=== PATIENT | female | born 1970 | race Caucasian/White ===

== ENCOUNTER → 2019-09-05 10:59 | Outpatient (CLI) | payer OTHER, SELFPAY ==
[2019-09-05 11:14] LABS: RBC Urine None Seen (0-5/HPF)
[2019-09-05 11:59] LABS: Add Manual Diff / Slide Review NO; Basophils Absolute Auto 100 /uL (0-100); Eosinophils Absolute Auto 100 /uL (0-450); Eosinophils Percent Auto 0.8 % (2-4); Hematocrit 38.4 % (36-46); Hemoglobin 12.8 g/dL (12.0-16.0); Lymphocytes Absolute Auto 3200 /uL (1100-4500); Lymphocytes Percent Auto 34.9 % (25-40); Mean Corpuscular HGB Conc 33.2 % (30-36); Mean Corpuscular Hemoglobin 31.3 PG (26-34); Mean Corpuscular Volume 94.1 fL (80-100); Monocytes Absolute Auto 500 /uL (0-900); Monocytes Percent Auto 5.6 % (3-14); Neutrophils Absolute Auto 5200 /uL (1500-7000); Neutrophils Percent Auto 57.7 % (50-75); Platelet Count 417 X10^3/uL (150-400); Red Blood Cell Count 4.08 X10^6/uL (4.0-5.2); Red Cell Distribution Width 14.3 % (11.6-14.8); White Blood Cell Count 9.1 X10^3/uL (4.5-11.0)
[2019-09-05 12:04] LABS: Appearance Urine UA CLEAR; Bilirubin Urine UA NEGATIVE (NEGATIVE); Color Urine UA YELLOW; Glucose Urine UA NEGATIVE (Negative); Ketones Urine UA 1+ (NEGATIVE); Leukocyte Esterase Urine UA TRACE (NEGATIVE); Nitrite Urine UA NEGATIVE (Negative); Occult Blood Urine UA NEGATIVE (Negative); Protein Urine UA NEGATIVE (Negative); Urobilinogen Urine UA 0.2 E.U./dL (0.2)
[2019-09-05 12:12] LABS: pH Urine UA 7.5 (4.5-8.0)
[2019-09-05 12:16] LABS: Blood Urea Nitrogen 15 mg/dL (7-17); Calcium 9.6 mg/dL (8.4-10.2); Carbon Dioxide 26 mmol/L (22-32); Chloride 104 mmol/L (98-107); Estimated Glomerular Filt Rate > 60.0 mL/min (>60); Glucose 92 mg/dL (70-100); HEMOLYSIS < 15 (0-50); Potassium 4.2 mmol/L (3.4-5.1); Sodium 141 mmol/L (137-145)
[2019-09-05 12:17] LABS: Hemoglobin A1C% w Est Avg Glu 5.6 % (4.0-6.0)
[2019-09-05 12:21] LABS: Squamous Epithelial Cell Urine 1-5 /HPF (0-5/HPF); WBC Urine 0-1/HPF (0-5/HPF)
[2019-09-05 12:22] LABS: Bacteria Urine Few (2-10); Culture Indicated Urine Specimen Cultured
== END ==
PROVIDERS: Family Provider Specialist; PCP Specialist; Visit Provider Orthopaedic Surgery
DX: Z01.818 Encounter for other preprocedural examination (principal); Z01.812 Encounter for preprocedural laboratory examination; Z13.1 Encounter for screening for diabetes mellitus; N39.9 Disorder of urinary system, unspecified; R73.9 Hyperglycemia, unspecified
CPT/HCPCS: 36415; 80048; 81001; 83036; 85025; 87086; 93005

== ENCOUNTER 2019-10-10 06:00 | Inpatient (IN) | payer OTHER, SELFPAY ==
[2019-10-04 09:55] VITALS: BMI 51.9
[2019-10-10] VITALS (14 sets, daily range): BP systolic 108–151; BP diastolic 58–98; PULSE 72–100; RESP 14–27; TEMP 36.1–36.9; O2SAT 96–98; BMI 51.9
--- NOTE | 2019-10-10 | DI.RAD.S_ITS ---
PROCEDURE: XR PELVIS 1-2V INDICATIONS: INTER OP HIP TECHNIQUE: Intra-operative view of the pelvis and hip acquired. COMPARISON: [facility] [place], [place], XR PELVIS WITH LATERAL HIP RIGHT, 09/05/2019, 9:48. FINDINGS: Bones: Limited study demonstrates partial placement of right hip arthroplasty. The visualized components appear in expected positions. An intramedullary shannon is again noted in the visualized left femur. No definite acute fractures. Soft tissues: Overlying surgical retractors are present, along with other intraoperative changes. IMPRESSION: 1. Intraoperative study obtained for surgical guidance demonstrates partial placement of right hip arthroplasty components. Dictated by: Kailash Samson M.D. on 10/10/2019 at 10:04 Approved by: Kailash Samson M.D. on 10/10/2019 at 10:06
--- NOTE | 2019-10-10 06:00 | DI.RAD.S_ITS ---
PROCEDURE: XR HIP W PEL IF DONE RT 2V INDICATIONS: post op right DIVINE TECHNIQUE: AP pelvis and lateral view of the right hip acquired. COMPARISON: [facility], [place], HIP 2V RIGHT, 09/09/2011, 9:50. FINDINGS: Bones: Patient is status post total right hip arthroplasty, with hardware components in expected positions. The hip joint appears congruent. The visualized bony structures appear intact. An intramedullary nail is partially visualized within the proximal left femur. Soft tissues: Overlying postoperative changes are noted. No suspicious soft tissue densities. IMPRESSION: Status post right total hip arthroplasty. Dictated by: Tanisha Robertson M.D. on 10/10/2019 at 10:10 Approved by: Tanisha Robertson M.D. on 10/10/2019 at 10:10
[2019-10-10] MEDS: LACTATED RINGERS 1,000 ML 42 ML IV ×2 (07:02→10:12)
[2019-10-10] MEDS: MELOXICAM 7.5 MG TABLET 15 MG PO (07:04)
[2019-10-10] MEDS: PREGABALIN 75 MG CAPSULE PO (07:05)
[2019-10-10] MEDS: VANCOMYCIN 1,000 MG/200 ML PIGGYBACK 200 MG IV (07:05)
[2019-10-10] MEDS: ACETAMINOPHEN 325 MG TABLET 975 MG PO (07:27)
--- NOTE | 2019-10-10 07:36 | SUR.PREOP ---
Patient took 500 mg of tylenol this morning prior to arrival. Per Dr Stewart, anesthesia, okay to give 325 mg Tylenol. Family at bedside and supportive.
--- NOTE | 2019-10-10 07:47 | PM.PREOP ---
Pre-operative Note Interval Note History & Physical reviewed/Exam performed by Physician: Yes Changes to H&P: No H&P completed within 30 days and has changed as indicated here:: taking 30mg prednisone daily to optimize lungs
[2019-10-10] MEDS: CEFAZOLIN 2 GM/100 ML FROZ.PIGGY IV (07:48)
--- NOTE | 2019-10-10 07:48 | PM.OP.1 ---
Operative Date/Time/Diagnoses Date of procedure: 10/10/19 Time of procedure: 07:48 Pre-op diagnosis: right hip OA Post-op diagnosis: same Procedure & Clinicians Procedure: right hip total hip arthroplasty Same procedure as scheduled: Yes Indications: The patient has had progressively worsening right hip pain with radiographic changes consistent with arthritis. Non-operative management has failed and the patient has requested total hip replacement. The risks, benefits and alternatives to surgery were discussed with the patient prior to proceeding. Risks discussed included, but were not limited to, failure to relieve pain, leg length discrepancy, dislocation, stiffness, infection, nerve damage, deep venous thrombosis, pulmonary embolism, stroke, coma, heart attack, permanent paralysis and , as well as the potential need for eventual revision of the prosthetic. Patient was noted to have morbid obesity but was otherwise optimized for surgical intervention. She had severe right hip osteoarthritis to the extent that she was barely able to walk. Surgeon: Mehnaz Zamudio Radiotelegraphist: Ranulfo Wheat Anesthesia Type: Spinal Operative Notes Findings: Severe right hip osteoarthritis, adequate quality bone, adequate stability Closure Type: primary Specimen(s): none sent Prosthetic devices, grafts, tissues, transplants, or devices: Anthology size 3 standard offset stem, 32 mm +0 head, 48 by 32 mm R3 acetabulum, one 15 mm screw Applied: drain(s) Estimated Blood Loss (mL): 250 Procedure in detail: The patient was seen in the pre-operative area, where the patient identified the right hip as the operative site and this was marked with my initials. The patient received pre-operative antibiotics and was taken to the operating room and placed on the operative table in the left lateral decubitus position after satisfactory anesthesia. A apparel fashion designer out was performed. The right leg was prepared from the ankle to the iliac crest with ChloroPrep in the usual fashion and draped through sterile drapes. The hip was approached through an approximately 20 cm incision centered over the greater trochanter and curving gently posteriorly as it went proximally. This was carried sharply to the fascia katie, which was divided and retracted with a self retaining retractor. The trochanteric bursa was excised with care being taken to avoid the sciatic nerve, which was identified and protected throughout the case. The short external rotators were incised and the capsulomuscular flap was raised and tagged for later repair. The hip was dislocated, and a femoral neck osteotomy performed approximately 15 mm above the lesser trochanter. Retractors were placed around the femur. The canal was opened with a box cutting osteotome, followed by a T handled reamer and a lateralizing reamer. The chili pepper broach was then used, followed by sequential broaching until there was good stability of the broach in the femur. Retractors were placed to expose the acetabulum. The labrum and central soft tissues were removed. Reaming was performed initially going up in 2 mm increments, then 1 mm increments until good bite was obtained with an odd sized reamer. The cup 1 mm larger than the last reamer was then inserted using the appropriate anteversion guides. A trial neutral liner was placed. The broach was placed in the canal. A trial head and neck were then placed and the hip relocated and checked for leg length and stability. An intraoperative film confirmed the component position and no evidence of fracture. The patient was stable in the position of sleep, of squatting, and could be put through a range of motion with 45 degrees internal rotation without dislocation. At 90 degrees flexion, internal rotation to 70 was possible before dislocation. This was felt to be satisfactory and the appropriate components were opened, and the trials were removed. The acetabular stability was tested and a single 6.5 mm screw was placed to provide additional stability. The acetabular liner was impacted into position. The final stem was impacted into the prepared femoral canal. A brief Betadine soak was performed while trialing with head options. The hip was meticulously irrigated with normal saline. Finally the femoral head was impacted onto the stem. The acetabulum was cleared of all material and the hip relocated one final time. The capsulomuscular flap was then repaired to the greater trochanter though an awl hole using the tag sutures. The short external rotators were repaired with a nonabsorbable suture. A deep drain was placed and brought out anteriorly. The fascia katie was closed with Vicryl. The subcutaneous layer was closed with barbed sutures and SteriStrips. An Aquacel Ag dressing was applied and the patient was taken to recovery having tolerated the procedure well. Complications: none Post-operative Condition: stable Disposition: Acute Care Plan for aftercare: The patient will be maintained on a standard total hip replacement protocol with weight bearing as tolerated and posterior hip precautions. The patient will receive Aspirin and sequential compression devices for DVT prophylaxis. The patient will be discharged home when safe for the home environment.
[2019-10-10] MEDS: TRANEXAMIC ACID 1,000 MG VIAL 2000 MG INJ ×2 (08:37→10:03)
[2019-10-10] MEDS: SODIUM CHLORIDE IRRIG SOLUTION 250 ML, EPINEPHrine 1 MG IRR (08:40)
[2019-10-10] MEDS: BUPIVACAINE LIPOSOME 266 MG/20 ML VIAL INJ (08:42)
[2019-10-10] MEDS: BUPIVACAINE 0.25% W/ EPI (PF) 10 ML VIAL 60 ML INJ (08:45)
--- NOTE | 2019-10-10 09:02 | SUR.OPER ---
Lateral on padded OR bed. Gel axillary roll. Arms secured on gel padded armboard with pillow supporting top arm. Padded hip positioner braces x4 - anterior and posterior chest and pelvis. Additional gel pad used anterior pelvis. Gel pad under bottom leg from knee to foot and secured with tape over sheet.
[2019-10-10] MEDS: OXYCODONE IR 5 MG TABLET PO ×2 (11:04→11:35)
[2019-10-10] MEDS: hydrOXYzine 50 MG/ML INJ 25 MG IM (11:06)
--- NOTE | 2019-10-10 11:51 | SUR.PHASEI ---
Patient taken to room 212. Brought up in bed in stable condition. All belongings, including CPAP sent with patient. Receiving KRISTY Pierson at bedside to receive patient.
[2019-10-10] MEDS: LACTATED RINGERS 1,000 ML 125 ML IV ×2 (12:20→19:52)
--- NOTE | 2019-10-10 12:28 | PC.NURSE ---
Addendum entered by Kenna Rios R.N. 10/10/19 13:36: Dr. Zamudio called for update around 1320, wants pt OOB today with PT. Clarified scheduled [place] dose, hold for now and placed hold on eMAR. At 1335, pt OOB to BR to void, and OOB ambulating in halls with PT. Several family members at bedside. Original Note: Day Shift- Report rec'd from KRISTY Spear in PACU at 1130. Pt arrived to unit room 212 at 1145 via bed. Oriented to bed functions, call light, po intake, pain management, ankle pump exercises, incentive spirometer. Pt states 1/10 burning, sore to right hip area. Bilateral feet, ankles, and just above ankles to lower legs numb. Able to sense touch, not cold or wet from alcohol pad. Pt A&OX4, able to answer questions appropriately, RT paged to set up pt's own CPAP machine. Right posterior hip DEV dressing CDI with hemovac in place on compression suction. Insertion site covered with CDI tegaderm dressing. Call light within reach, bed alarm on.
[2019-10-10] MEDS: IBUPROFEN 400 MG TABLET PO ×3 (12:52→22:06)
[2019-10-10] MEDS: HYDROCODONE/ACET 5/325 TABLET 2 TAB PO (12:53)
--- NOTE | 2019-10-10 14:17 | PT.IIE ---
Current Diagnoses Unilateral primary osteoarthritis, right hip (10/10/19) Surgery Performed Operation Date: 10/10/19 07:45 Actual Procedures p Total Hip Arthroplasty(Right) - Mehnaz Zamudio MD Surgical History (Last Updated 10/04/19 @ 10:23 by Grace Medrano RN) History of (Acute) History of surgery (Acute ~1990) History of surgery (Acute) Hx of sinus surgery (Acute ~1979) Medical History (Last Updated 10/05/19 @ 10:57 by Grace Medrano RN) Asthma (Chronic) Chronic pain (Acute) Chronic pain due to injury (Chronic) Chronic seasonal allergic rhinitis (Chronic) Collapsed arches (Acute) Easy bruisability (Acute) Eczema (Acute) Fatigue (Chronic) Fatty liver (Acute) Fibromyalgia (Chronic) GERD (gastroesophageal reflux disease) (Chronic) Left ACL tear (Acute) FPC current use of opiate analgesic (Chronic) FPC current use of systemic steroids (Chronic) Morbid obesity with BMI of 50.0-59.9, adult (Chronic) Obstructive sleep apnea of adult (Chronic) Osteoarthritis involving multiple joints on both sides of body (Chronic) Physical Therapy Inpatient Evaluation/Re-Eval M1 PT/OT-IP Prior Functional Status Start: 10/10/19 11:21 Freq: NEEDED Status: Active Protocol: Document 10/10/19 13:48 AW (Rec: 10/10/19 14:17 AW [email or web address]) Medical Review Prior Functional Status Medical History Reviewed Yes Diet/Fluid Consistency Regular Communication WNL Mobility and Gait Pt was modified independent with use of FWW, SPC and bilateral AFO's for several years. She used the FWW in her home and the SPC out in the community. Activities of Daily Living and IADL's Independent Social History Household Members none Living Arrangements House Number of Floors (Floors) One Floor Number of Stairs To Enter/Railing? Ramp + 5 steps to enter with right railing ascending. Home Environment High Toilet Home Equipment Front Wheel Walker,Straight Cane,Manual Wheelchair,Bedside Commode,Tub Transfer Bench, Long Handled Sponge,Shotblast Equipment Operator, Sock Aid,Grab Bars In Shower Employment Status Unemployed Additional Social History Comment Pt lives alone in [place]. Her son lives in and is available to assist the pt at home. Her parents from [place] are visiting until her follow-up appointment on October 23 at which point they hope to take her to [place] with them. Pt's brother and sister in law are also visiting and able to help as much as needed. M2 PT-IP Current Condition Start: 10/10/19 11:21 Freq: NEEDED Status: Active Protocol: Document 10/10/19 13:48 AW (Rec: 10/10/19 14:17 AW [email or web address]) Physical Therapy Current Condition Current Condition Evaluation Date 10/10/19 Treatment Diagnosis s/p R DIVINE posterior approach, impaired mobility Precautions Posterior Hip Precautions No Hip Flexion > 90 degrees,No Hip Internal Rotation,No Hip Adduction Brace bilateral AFO's for collapsed arches Weight Bearing Status Weight Bearing Status Weight Bear as Tolerated M3 PT-IP Subjective Start: 10/10/19 11:21 Freq: NEEDED Status: Active Protocol: Document 10/10/19 13:48 AW (Rec: 10/10/19 14:17 AW [email or web address]) Subjective Physical Therapy Visit Type Type Initial Evaluation Visit Start Time 13:10 Visit Stop Time 13:46 Total Visit Minutes 36 Number of CASE REVIEWER Visits 0 Physical Therapy Visit Comments Patient Comments Pt would like to use the toilet Patient Goals To go home tomorrow with family support Therapy Pain Assessment Pain When Pain Assessed During Mobility Pain Present Pain Present Pain Reported Location Right Hip Intensity 7 Scale Used 5/10 at rest; 7/10 wtih mobility Pain Management Techniques Apply Cold,Re-positioning, Timing of Activity with Medications M4 PT-IP Mobility and Gait Start: 10/10/19 11:21 Freq: NEEDED Status: Active Protocol: Document 10/10/19 13:48 AW (Rec: 10/10/19 14:17 AW [email or web address]) PT-Transfer Assessment Sit to and From Stand Sit to and from Stand Contact Guard Assistance Equipment Transfer Assistive Device Gait Belt,Front Wheeled Walker Orthotic/Prosthetic Devices or Brace: Yes Transfers Transfer Destination Chair,Toilet Transfer Technique pt ambulated with FWW Transfer Ability Level of Assist Contact Guard Assistance Comments Mobility Comments PT greeted pt sitting EOB and hoping to use the toilet. After brief assessment confirming control and sensation of the R LE, pt transferred sit to stand CGA, walked to the toilet with FWW CGA, and transferred to and from the toilet SBA to CGA. After another transfer to the chair, pt demonstrated ability to don her left AFO with good attention to precautions but required assist to don the right. Gait Assessment Gait Gait Assistance Required: Contact Guard Assist Distance (Feet) 150 Able to Maintain Weight Bearing Status Yes During Gait Assistive Devices Assistive Device Gait Belt,Front Wheeled Walker Orthotic/Prosthetic Devices or Brace: Yes Gait Deviations General Gait Pattern Antalgic,Decreased Stride Length,Decreased Feet Clearance,Flexed Trunk,Step-to Gait Factors Limiting Gait Function Factors Limiting Gait Function Decreased Strength,Limited Range of Motion,Pain Comments Gait Comments Pt ambulated with FWW and B AFO's CGA. Gait was notable for bilateral valgus knee and ankle posture as well as vaulting on the R LE during stance phase. Stair Climbing Assessment Comments Stair Climbing Comments Not assessed. PT-Balance Assessment Sitting Balance and Reactions Static Sitting Balance Ability Good Dynamic Sitting Balance Ability Good Standing Balance and Reactions Static Standing Balance Ability Good Dynamic Standing Balance Ability Good Device Used FWW M5 PT-IP Objective Assessments Start: 10/10/19 11:21 Freq: NEEDED Status: Active Protocol: Document 10/10/19 13:48 AW (Rec: 10/10/19 14:17 AW [email or web address]) Orientation Orientation/Cognition Level of Alertness Alert Orientation Name,Day of Week,Place, Situation Language Function Ability No Deficits Noted Safety Awareness Understands Safety Issues Memory Description No Deficits Noted Gross Range of Motion Upper Extremity ROM Assessment Within Functional Limits Lower Extremity ROM Assessment Right Impaired Strength Upper Extremity Strength Assessment Within Functional Limits Lower Extremity Strength Assessment Right Impaired Comments Strength Comments LLE WFL Coordination Assessment Gross Coordination Gross Coordination WNL Sensation Assessment Sensation Gross Sensation WNL M6 PT-IP Treatment Start: 10/10/19 11:21 Freq: NEEDED Status: Active Protocol: Document 10/10/19 13:48 AW (Rec: 10/10/19 14:17 AW [email or web address]) Physical Therapy Treatment Exercises Exercises Ankle Pumps,Gluteal Sets,Quad Sets,Heel Slides Education Education Provided Precautions,Weight Bearing Status,Post-Op Packet,Safety Other Treatments Other Treatment Performed PT provided education on plan of care, posterior hip precautions, post-op exercises , and safe use of FWW. M7 PT-IP Assessment and Plan Start: 10/10/19 11:21 Freq: NEEDED Status: Active Protocol: Document 10/10/19 13:48 AW (Rec: 10/10/19 14:17 AW [email or web address]) PT Summary Assessment and Plan Potential Rehabilitation Potential Excellent Status of Condition at Evaluation Evolving Summary Impairments Pain,ROM,Strength,Bed Mobility ,Transfers,Gait Assessment Summary Josselin is a 49 yo woman seen for PT evaluation on POD0 following R DIVINE with posterior approach. At baseline, she was modified independent with use of SPC or FWW and bilateral AFO's for ambuation. She was independent for ADL's . On evaluation, pt required SBA to CGA for all mobilities though stairs were not assessed. Pt is determined and has a good plan in place to go home with family assist. PT recommends likely discharge to home with family assist and outpatient PT once medically cleared. Goals Bed Mobility Goal Independent Transfer Goal Independent,Front Wheeled Walker Gait Goal Independent,Front Wheel Walker Gait Distance 200 with FWW and AFO's Other Goals - up/down 5 steps using R rail ascending and SPC in alternate hand CGA Days to Meet Goals 2 Frequency of Treatment Frequency Of Treatment Twice a Day Treatment Plan Physical Therapy Treatment Plan Bed Mobility Training,Transfer Training,Gait Training, Therapeutic Exercise,Balance Retraining,Post Op Education, Discharge Planning,Hot or Cold Pack Other Recommendations and Next Treatment progress gait, review ther ex Focus and posterior precautions, trial stairs. Recommendations To Nursing Amount of Assist Needed Standby Assistance,1 Person Assist Discharge Recommendations PT Discharge Recommendations Home with Assistance, Outpatient PT
[2019-10-10] MEDS: ALBUTEROL 2.5 MG/3 ML NEB (ADULT) INH ×2 (15:11→20:27)
[2019-10-10] MEDS: CEFAZOLIN VIAL 3 GM in SODIUM CHLORIDE 0.9% 100 ML 200 ML IV (16:10)
[2019-10-10] MEDS: OXYCODONE IR 10 MG TABLET PO ×2 (16:10→19:55)
[2019-10-10] MEDS: ACETAMINOPHEN 325 MG TABLET 650 MG PO (16:11)
[2019-10-10] MEDS: BECLOMETHASONE 80 MCG INH 10.6 GM 3 PUFF INH (20:36)
[2019-10-10] MEDS: PANTOPRAZOLE 20 MG TABLET PO (22:08)
[2019-10-10] MEDS: ASPIRIN EC 81 MG TABLET PO (22:08)
[2019-10-10] MEDS: DOCUSATE 100 MG CAPSULE PO (22:08)
[2019-10-10] MEDS: MONTELUKAST 10 MG TABLET PO (22:09)
--- NOTE | 2019-10-10 22:41 | PC.NURSE ---
Evening notes: Nathalia had a good night, ambulated in hallways x 1. Sat in recliner until around 1900 when she requested to go to BR and then bed. Voiding with no reported difficulty. Denies nausea. Reports pain managed with oxycodone, tylenol & ibuprofen. VS stable. Remains Ox3 & situation, calling nurse appropriately when needs assistance. Fall precautions in place.
[2019-10-11 00:06] VITALS: BP 122/73; PULSE 72; RESP 16; TEMP 36.6; O2SAT 98
[2019-10-11] MEDS: OXYCODONE IR 5 MG TABLET PO (00:09)
[2019-10-11] MEDS: CEFAZOLIN VIAL 3 GM in SODIUM CHLORIDE 0.9% 100 ML 200 ML IV (00:38)
[2019-10-11] MEDS: IBUPROFEN 400 MG TABLET PO ×4 (00:55→12:21)
[2019-10-11] MEDS: OXYCODONE IR 10 MG TABLET PO ×4 (02:57→12:21)
[2019-10-11 05:00] LABS: Hematocrit 28.9 % (36-46); Hemoglobin 9.7 g/dL (12.0-16.0)
[2019-10-11 05:54] VITALS: BP 112/61; PULSE 98; RESP 20; TEMP 37; O2SAT 96
--- NOTE | 2019-10-11 07:41 | P.DS_ITS ---
History of Present Illness History of Present Illness Chief complaint: [id number] Right Total Hip Arthroplasty Discharge Providers Provider Date of admission: 10/10/19 06:00 Discharge Date: 10/11/19 Primary care physician: Afshan Mccullough MD Consults: 10/05/19 11:33 Consult to Anesthesiology Routine Comment: Consulting Provider: Anesthesiologist Reason for consultation: Surgeon requested re: Pulmonary 10/10/19 06:00 Consult to Anesthesiology Routine Comment: Consulting Provider: Anesthesiologist Reason for consultation: Regional block for post operative pain control 10/10/19 07:20 Consult to Respiratory Therapy Evaluate & Treat Comment: Physician Instructions: Evaluate and treat 10/10/19 11:48 Consult to Anesthesiology Routine Comment: Consulting Provider: Anesthesiologist Reason for consultation: Regional block for post operative pain control Consult to Discharge Planning Routine Comment: Consult to Physical Therapy Evaluate & Treat Comment: Physician Instructions: post op LANETTE protocol Consult to Respiratory Therapy Evaluate & Treat Comment: Physician Instructions: Evaluate and treat 10/11/19 07:38 Consult to Home Health Routine Comment: Reason For Exam: lanette--physical therapy, home PT Discharge provider: Erika Strickland MD Summary Hospital Course Discharge Diagnosis: Hip arthritis right Hospital Course: Patient was admitted to the hospital after her right total hip replacement. Patient's pain was controlled on p.o. oxycodone. Patient ambulated with physical therapy using a walker and her bilateral braces up and down the castano on postop day 0. On postop day 1 patient's pain was controlled she was tolerating oral medications and diet and appropriate for discharge home with assistance. request for home health PT has been ordered. Status at Discharge Cognitive/behavioral status at discharge: oriented Functional status at discharge: uses cane/walker Overall status at discharge: patient is progressing back to baseline Time Spent with Patient Time spent: Less than 30 minutes Exam Vital Signs (past 8 hours): - 10/11/19 00:06 10/11/19 05:54 Temperature 97.8 F 98.6 F Pulse Rate 72 98 H Respiratory Rate 16 20 Blood Pressure 122/73 112/61 Pulse Oximetry 98 96 Oxygen Delivery Method Room Air,CPAP Oxygen Flow Rate 0 Narrative Exam Narrative: General exam alert oriented female no acute distress. Respiratory exam unlabored on room air. Patient uses CPAP at night. Lungs clear to auscultation Cardiac regular rate and rhythm Abdomen is soft obese No Romano catheter Musculoskeletal: Neurovascularly intact moving bilateral extremities demonstrates active dorsiflexion plantar flexion. Josesito dressing in place on rig ht hip. Anterior Hemovac drain removed today with the scant drainage overnight. Thigh is soft. Calves are soft. SCDs in place. Sensation grossly intact to light touch brisk capillary refill Objective Labs Result Diagrams: 10/11/19 04:45 Labs: Laboratory Results - last 24 hr 10/11/19 04:45 Hgb 9.7 L Hct 28.9 L Discharge Plan Discharge Plan Patient Disposition: Home Discharge comment: home health PT order placed Discharge orders & Medications Prescriptions: New aspirin 81 mg Tablet,Delayed Release (Dr/Ec) 81 mg PO BID Qty: 60 RF: 0 docusate sodium [DOK] 100 mg Capsule 100 mg PO BID Qty: 30 RF: 0 oxycodone 5 mg Tablet 5 - 10 mg PO Q4H PRN (Reason: Pain, Moderate (4-6)) Qty: 60 RF: 0 Continued albuterol sulfate 2.5 mg /3 mL (0.083 %) Solution For Nebulization 2.5 mg INHALATION BID-TID RF: 0 methotrexate sodium 2.5 mg Tablet 2.5 mg PO QWEEK RF: 0 montelukast [Singulair] 10 mg Tablet 10 mg PO BEDTIME RF: 0 levonorgestrel-ethinyl estrad [Introvale] 0.15 mg-30 mcg (91) Tablets,Dose Pack,3 Month 1 tab PO DAILY RF: 0 Enbrel 50 mg/mL (1 mL) Syringe 50 mg SUBCUT QWEEK RF: 0 Qvar RediHaler 80 mcg/actuation Hfa Aerosol Breath Activated 3 inh INHALATION BID RF: 0 cyclobenzaprine 10 mg Tablet 10 mg PO TID PRN (Reason: Muscle Spasm) RF: 0 acetaminophen [Tylenol] 325 mg Tablet 500 mg PO NOW RF: 0 meloxicam [Mobic] 15 mg tablet 15 mg PO DAILY RF: 0 prednisone 20 mg tablet 30 mg PO DAILY RF: 0 omeprazole 20 mg capsule,delayed release(DR/EC) 20 mg PO BID RF: 0 albuterol sulfate 90 mcg/actuation HFA aerosol inhaler 2 puff INHALATION Q6H PRN (Reason: Shortness Of Breath) RF: 0 Xolair 150 mg recon soln 150 mg SUBCUT Q4W RF: 0 Symbicort 160-4.5 mcg/actuation HFA aerosol inhaler 2 puff INHALATION BID RF: 0 Discontinued hydrocodone-acetaminophen 5-325 mg Tablet 1 - 2 tab PO Q6H RF: 0 No Action (DME) Respironics Dreamstation CPAP Qty: 1 RF: 0 Follow up/Referrals: Afshan Mccullough MD [Primary Care Provider] - Mehnaz Zamudio MD [Physician] - (as scheduled) Diet/Activity/Treatments Diet: Diet as Tolerated Activity: WBAT , PHP Other treatments: leave josesito dressing in place, php. Skin/Wound/Dressing Care Report to your healthcare provider any signs of infection, such as:: chills, fever, night sweats, increased pain, unusual drainage and unusual redness Visit Report/Discharge Packet Instructions: DI for Hip Replacement Discharge Data Primary Care Provider: Afshan Mccullough
[2019-10-11 07:45] VITALS: BP 130/72; PULSE 88; RESP 16; TEMP 36.6; O2SAT 92
[2019-10-11] MEDS: DOCUSATE 100 MG CAPSULE PO (08:13)
[2019-10-11] MEDS: PANTOPRAZOLE 20 MG TABLET PO (08:13)
[2019-10-11] MEDS: ASPIRIN EC 81 MG TABLET PO (08:14)
[2019-10-11] MEDS: predniSONE 20 MG TABLET 30 MG PO (08:14)
[2019-10-11] MEDS: ACETAMINOPHEN 325 MG TABLET 650 MG PO (08:14)
[2019-10-11] MEDS: BECLOMETHASONE 80 MCG INH 10.6 GM 3 PUFF INH (08:39)
[2019-10-11] MEDS: ALBUTEROL 2.5 MG/3 ML NEB (ADULT) INH (08:39)
[2019-10-11 08:40] VITALS: PULSE 89; RESP 14; O2SAT 98
--- NOTE | 2019-10-11 09:15 | CM.DANOTE ---
Patient is a 49 year old female who was admitted on 10/10/19 [facility] for Right DIVINE. Pt has [facility] for insurance and her PCP is Dr. Afshan Mcculloguh. EMR was reviewed. Per Ortho PA, pt tolerated PT well and is stable for d/c home with today and no barriers to discharge identified. Per PT, pt to complete stair and caregiver training today prior to d/c but recommending safe d/c home with either HH or outpt PT. CAITLYN called [facility] and left msg regarding new referral for patient discharging back to Wednesday today and they are closed due to today being [place] but SW requested that when they open tomorrow that they confirm they are contracted with pt's insurance and to call pt herself at home to confirm with her if they can accept. SW met bedside with pt and multiple family members and explained role and pt confirms that she lives alone on Wednesday but has local brother nearby who is available for assist and pt's parents are currently visiting and staying with pt after d/c to assist until 10/23/19. Pt is independent at baseline with ADL's and drives and preference is to d/c home with family via priority boarding ferry pass and is agreeable with HH or outpt PT. CAITLYN provided the Choice List and explained that [facility] is the only agency that covers the [employer] and pt is already aware and states she knows the PT staff that work for [facility] and she is agreeable to referral to [facility]. CAITLYN discussed that confirmation that they accept her insurance and start date could not be confirmed today as they are closed for but that CAITLYN will fax all the clinicals, MD Osiris orders to [facility] to review and request they call pt tomorrow to confirm if they can open the pt to service. CAITLYN also provided the [facility] brochure to the pt for the contact information in case she hasn't heard from them by tomorrow afternoon. Pt states she would also be agreeable to outpt PT if HH is not an option and family can help transport her if needed but it would be challenging with her hip precautions. CAITLYN faxed documents to [facility] to review and updated RN who states pt to work with PT this morning with plan to catch the 1300 ferry home. Plan: Patient to d/c home today via family POV back to Wednesday and [facility] referral made and requested to call pt tomorrow when office reopens to confirm start of care with pt. RAJWINDER Laguerre Discharge Planning/Care Management CM Discharge Assessment Start: 10/11/19 09:13 Freq: Status: Active Protocol: Document 10/11/19 09:13 BF (Rec: 10/11/19 09:15 BF [id number]) Discharge Planning Assessment Assigned Grey Roll Man RAJWINDER Blake Advance Directives? No History Provided By Patient,Family Member,Medical Record Has Patient been admitted in last 30 No days? Prior Living Arrangements House Household Members none Type of transporation used prior to Drives own vehicle admit Independent with ADL's Yes Is patient alert and oriented? Yes Caregiver for Another No Community Services used prior to Physical Therapy admission: DME Already Rented / Owned FWW / Walker Patient/Family Preference Home with Home Health Barriers to Discharge No Discharge Plan Home with Home Health Community Services Physical Therapy,Occupational Therapy Transportation Arrangement Family bedside and providing transport back home to Wed Referrals Initiated Home Health If patient plan is home with home health Yes : Has signed face to face form been completed? Medicare Choice List Provided Yes SNF/HH Preference [facility] as its the only HH agency that covers the [facility] Updated in Patient Room with Yes name and ext. # of Grey Roll Man Review Status In Process Please Provide Date Initial DC 10/11/19 Assessment Was Performed Next Review Type Continued Stay Review Pre-Anesthesia Assessment Start: 10/04/19 09:55 Freq: Status: Complete Protocol: Document 10/04/19 09:55 CAB (Rec: 10/04/19 10:55 CAB [id number]) Pre-Anesthesia Assessment Preferred Name Josselin Patient Information Reviewed Via Phone Assessment Assessment Completed With Patient Diagnostic Results BMP/CMP,CBC,EKG,Urinalysis Comment Labs/EKG @ 09/05/19 Primary Care Provider Afshan Mccullough Seen Specialist in Last 12 Months Yes Specialist Seen Orthopedist,Senior Property Accountant, Other Comment RA Primary Language Azeri Dipper Fish Required No Height 152.4 cm Weight 120.656 kg Body Mass Index (BMI) 51.9 Hearing Ability Normal Visual Impairment No Limitations Visual Assist None Dentition Type Teeth, Natural Present,Teeth, Missing Barriers to Learning None Other Aids Yes: CPAP Hx Anesthesia Reactions No Hx Family Anesthesia Reaction Yes: Brother woke up during surgery combative Hx Malignant Hyperthermia No Hx Blood Transfusions No Anesthesia Review Requested Yes: Surgeon requested re: Pulmonary alcohol intake current alcohol intake frequency a few times a month Smoking Status Never smoker Substance Use Type does not use Pain Present Pain Reported Musculoskeletal Symptoms Abnormal Gait,Back Pain, Difficulty Walking,Joint Pain, Muscle Cramps,Muscle Spasms, Muscle Weakness,Neck Pain History of Falling (Recent or History of No ) Patient is completely paralyzed or No completely immobile Prosthesis or Orthotic Device Cane,Front Wheel Walker Mental Status Oriented to own ability Is patient on oxygen? No Does patient have ANGELES/SOB Yes: r/t Asthma Hx Sleep Apnea Yes CPAP/BIPAP use prescribed and used routinely Will Bring CPAP/BIPAP DOS Yes Currently Taking a Beta [place] No Can You Climb a Flight of Stairs Without No SOB Hx Chest Pain No Hx SOB Yes: r/t Asthma Hx Syncope or Dizziness Yes: Occasional dizzines with fast movements, postion changes Anti-Coagulant Therapy No Has a Placing Judge No Cardiac Testing No Hx Pacemaker/ICD No Pacemaker Rep Required? 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 Marital Status Single Lives With none Prior Living Arrangements House Number of Floors (Floors) One Floor Support System Child/Children,Friend(s), Parent(s) Does the Patient Have Assistance After Yes Surgery Patient Discharge Plan Description Return Home Comment Pt not advised on length of stay per surgeon's office Feels Safe in Current Environment Yes Been Physically Hurt or Threatened By a No Person in Current Environment Do you have thoughts of harming yourself None or others? Are you currently considering suicide? No Do you have a plan to hurt yourself or No Plan others? Do You Have Any Spiritual Beliefs That No May Affect Your HC Choices? Do You Have Any Cultural Practices That No May Affect Your HC Choices? Spiritual Referral None Comment Quaker Who Can We Speak to About Patient's Care Family, friends Identifying Code for Release of Patient Declines to issue Information Health Care Proxy/Next of Kin Teresa (Mother) Health Care Proxy Emergency Contact Name Teresa (Mother) Emergency Contact Advance Directives? No Power of Booster Station Operator No PAC Instructions Bring CPAP/BIPAP,Do not shave/ clip surgical site,Durable medical equipment,Medications to take/avoid,Nasal antibiotic ,No ETOH/petroleum product on skin DOS,Post-op transportation,Pre-surgical wash,Sturdy shoes/comfortable clothes,Do not bring valuables and remove jewelry
--- NOTE | 2019-10-11 09:21 | PC.NURSE ---
Addendum entered by Keesha Freedman R.N. 10/11/19 12:59: Pt back from surgery at 1230. She has an abductor wedge between her legs and scds on. She denies pain as she had fentanyl, duromorph, and bupivocane injected in her hip from anesthia. She has an aquacel dressing in place that is cdi to left upper hip. Original Note: Patient is sitting up in her chair after getting up for breakfast. Pain medication just given prior to getting in shower. She has a Jennifer dressing to her r.hip that is cdi, green light flashing on end box...Pt will be catching the 14[address] ferry to [facility] later today. Resting comfortably.
--- NOTE | 2019-10-11 10:32 | PT.IPTN ---
Current Diagnoses Unilateral primary osteoarthritis, right hip (10/10/19) Surgery Performed Operation Date: 10/10/19 07:45 Actual Procedures p Total Hip Arthroplasty(Right) - Mehnaz Zamudio MD Physical Therapy Treatment Note M2 PT-IP Current Condition Start: 10/10/19 11:21 Freq: NEEDED Status: Active Protocol: Document 10/10/19 13:48 AW (Rec: 10/10/19 14:17 AW [id number]) Physical Therapy Current Condition Current Condition Evaluation Date 10/10/19 Treatment Diagnosis s/p R DIVINE posterior approach, impaired mobility Precautions Posterior Hip Precautions No Hip Flexion > 90 degrees,No Hip Internal Rotation,No Hip Adduction Brace bilateral AFO's for collapsed arches Weight Bearing Status Weight Bearing Status Weight Bear as Tolerated M3 PT-IP Subjective Start: 10/10/19 11:21 Freq: NEEDED Status: Active Protocol: Document 10/11/19 10:00 SP (Rec: 10/11/19 13:09 SP [id number]) Subjective Physical Therapy Visit Type Type Treatment Note Visit Start Time 10:00 Visit Stop Time 10:32 Total Visit Minutes 32 Number of ADVERTISEMENT COMPOSITOR Visits 1 Physical Therapy Visit Comments Patient Comments Pt willing to work with PT, wanting to asses stairs and go for a walk. Patient Goals To go home tomorrow with family support this afternoon. Therapy Pain Assessment Pain When Pain Assessed At Rest Pain Present Pain Present Pain Reported Location Right Hip Intensity 4 Scale Used 4/10 at rest, 5/10 with mobility, pedro luis stairs. Pain Management Techniques Apply Cold,Re-positioning, Timing of Activity with Medications M4 PT-IP Mobility and Gait Start: 10/10/19 11:21 Freq: NEEDED Status: Active Protocol: Document 10/11/19 10:00 SP (Rec: 10/11/19 13:09 SP [id number]) PT-Bed Mobility Assessment Supine to Sit Supine to Sit Standby Assistance Sit to Supine Sit to Supine Standby Assistance Scooting Scooting to Edge of Bed Independent PT-Transfer Assessment Sit to and From Stand Sit to and from Stand Standby Assistance,Use of Upper Extremities Equipment Transfer Assistive Device Gait Belt,Front Wheeled Walker Orthotic/Prosthetic Devices or Brace: Yes Transfers Transfer Destination Bed,Chair Transfer Technique pt ambulated with FWW Transfer Ability Level of Assist Standby Assistance,Use of Upper Extremities Comments Mobility Comments Pt was up in chair when arrived, mother and father present in room. Complete caregiver training with mother including bed mobility, transfer, gait and stair mgt. Pt was able to don L AFO with good maintaining R hip precautions (RLE out in front and L lateral lean), required assist of mother to support R AFO and strap velcro as patient pushed foot in. ADVERTISEMENT COMPOSITOR educated mom on proper donning gait belt for safety support during transfers as needed to patient (daughter). Pt complete sit to stand using BUE to push from chair and transition to FWW and reaching back before sitting, stable mother provided SBA but understood to use gait belt underhand composition mixer if needed. Pt was able to complete step pivot chair to bed SBA with good FWW positioning with her to HOB noted heavy BUE WB on FWW cued for awareness of knee extension to prevent buckling before moving . Pt was able to complete sitting<> supine HOB flat to assimulate home SBA, used gait belt over R foot to provided self support to bring RLE into/out of bed. Pt did use bed rail for support with LUE and stated family is installing transfer pole at EOB for her to use as needed. Cued for awareness of BLE knee extension during transfer WB, demonstrated heavy WB BUE on FWW. Pt was sitting in chair end of treatment with all needs and call light within reach and mother/father in room when left. Gait Assessment Gait Gait Assistance Required: Standby Assistance,1 Person Assist Distance (Feet) 212 Able to Maintain Weight Bearing Status Yes During Gait Assistive Devices Assistive Device Gait Belt,Front Wheeled Walker Orthotic/Prosthetic Devices or Brace: Yes Gait Deviations General Gait Pattern Antalgic,Decreased Stride Length,Decreased Feet Clearance,Flexed Trunk,Step-to Gait Factors Limiting Gait Function Factors Limiting Gait Function Decreased Strength,Limited Range of Motion,Pain Comments Gait Comments Pt was able to tolerated increased distance walking today using FWW, B AFO's SBA provided by her mother, caregiver training. Gait continued to be notable for bilateral valgus knee and ankle posture but decreased vaulting on the R LE during stance phase. Stair Climbing Assessment Evaluation Level of Assist On Stairs Minimal Assistance,1 Person Assistance Devices Stair Climbing Assistive Devices Straight Cane,Right Railing Technique/Endurance Stair Climbing Direction Ascend and Descend Stair Climbing Technique Step to Step Number of Steps Climbed 4 Stair Climbing Set # Repetitions (reps) 2 Comments Stair Climbing Comments Pt was able to complete stair training using RHR and SPC in LUE ascending. Cued x1 for patterning LLE ascending, RLE descending Samuel initially provided by therapist first set then CGA provided by mother second set of stairs. Cued for awareness of L knee extension during weight bearing onto to asecend her trunk up to next step, demonstrated still slight knee bed during the quick RLE transition to step to same step, no buckling of L knee demonstrated but heavy WB through BUE secondary to decreased strength in BLE. Patient and mother feel and demonstrated safe stair mgt training to prep for DC home today. PT-Balance Assessment Sitting Balance and Reactions Static Sitting Balance Ability Good Dynamic Sitting Balance Ability Good Standing Balance and Reactions Static Standing Balance Ability Good Dynamic Standing Balance Ability Good Device Used FWW M5 PT-IP Objective Assessments Start: 10/10/19 11:21 Freq: NEEDED Status: Active Protocol: Document 10/10/19 13:48 AW (Rec: 10/10/19 14:17 AW [id number]) Orientation Orientation/Cognition Level of Alertness Alert Orientation Name,Day of Week,Place, Situation Language Function Ability No Deficits Noted Safety Awareness Understands Safety Issues Memory Description No Deficits Noted Gross Range of Motion Upper Extremity ROM Assessment Within Functional Limits Lower Extremity ROM Assessment Right Impaired Strength Upper Extremity Strength Assessment Within Functional Limits Lower Extremity Strength Assessment Right Impaired Comments Strength Comments LLE WFL Coordination Assessment Gross Coordination Gross Coordination WNL Sensation Assessment Sensation Gross Sensation WNL M6 PT-IP Treatment Start: 10/10/19 11:21 Freq: NEEDED Status: Active Protocol: Document 10/11/19 10:00 SP (Rec: 10/11/19 13:09 SP [id number]) Physical Therapy Treatment Exercises Exercises Ankle Pumps,Gluteal Sets,Quad Sets,Heel Slides,Seated Knee Flexion/Extension Education Education Provided Precautions,Weight Bearing Status,Post-Op Packet,Safety Other Treatments Other Treatment Performed Pt was able to recall and maintain 3/3 hip precautions, demonstrated safe use of FWW and post op hip exercises seated and supine. M7 PT-IP Assessment and Plan Start: 10/10/19 11:21 Freq: NEEDED Status: Active Protocol: Document 10/11/19 10:00 SP (Rec: 10/11/19 13:09 SP [id number]) PT Summary Assessment and Plan Potential Rehabilitation Potential Excellent Status of Condition at Evaluation Evolving Summary Impairments Pain,ROM,Strength,Bed Mobility ,Transfers,Gait Assessment Summary Josselin was able to complete caregiver training with her mom for support at home upon discharge including bed mobility, transfers, AFO don/ doff, gait and stair management to safely support her daughter recovery. Pt required SBA support throughout treatment, used FWW and ableto complete stair mgt . Recommend home health PT for further strengthening and independence while acclimating to home environment and transition to outpatient PT as see needed. PT has all equipement needed for her at home. Pt is safe to DC home when medically stable. Goals Bed Mobility Goal Independent Transfer Goal Independent,Front Wheeled Walker Gait Goal Independent,Front Wheel Walker Gait Distance 200 with FWW and AFO's Other Goals - up/down 5 steps using R rail ascending and SPC in alternate hand CGA Days to Meet Goals 2 Frequency of Treatment Frequency Of Treatment Twice a Day Treatment Plan Physical Therapy Treatment Plan Bed Mobility Training,Transfer Training,Gait Training, Therapeutic Exercise,Balance Retraining,Post Op Education, Discharge Planning,Hot or Cold Pack Other Recommendations and Next Treatment Pt is safe to DC home when Focus medically stable. Recommendations To Nursing Amount of Assist Needed Standby Assistance,1 Person Assist Discharge Recommendations PT Discharge Recommendations Home Health
[2019-10-11 11:10] VITALS: BP 120/67; PULSE 90; RESP 16; TEMP 36.4; O2SAT 96
== END 2019-10-11 13:35 | disposition home health service (06) | DRG 470 ==
PROVIDERS: Admitting Provider Orthopaedic Surgery; Family Provider Specialist; PCP Specialist; Visit Provider Orthopaedic Surgery
PROC: 0SR90JZ Replacement of Right Hip Joint with Synthetic Substitute, Open Approach (ICD-10-PCS; CPT 27130; principal; 2019-10-10 07:45)
DX: M16.11 Unilateral primary osteoarthritis, right hip (principal); Z68.43 Body mass index [BMI] 50.0-59.9, adult; E66.9 Obesity, unspecified; G89.29 Other chronic pain; M81.0 Age-related osteoporosis without current pathological fracture; G47.33 Obstructive sleep apnea (adult) (pediatric); K21.9 Gastro-esophageal reflux disease without esophagitis; M79.7 Fibromyalgia; J45.909 Unspecified asthma, uncomplicated
CPT/HCPCS: 36415; 72170; 73502; 85014; 85018; 94640; 94760; 97116; 97162; 97530; C1776; C9290; J0171; J0690; J2250; J2405; J2704; J3010; J3410; J7613

== ENCOUNTER → 2020-04-04 10:36 | Outpatient (CLI) | payer OTHER, MEDICAID, SELFPAY ==
[2020-02-21 09:26] VITALS: BMI 51.9
--- NOTE | 2020-04-04 | DI.MRI.S_ITS ---
PROCEDURE: MR KNEE LT WO CON INDICATIONS: Unilateral primary osteoarthritis, left knee TECHNIQUE: Noncontrast sagittal PD fast spin echo and T2 fast spin echo with fat saturation, sagittal 3-D FLASH with fat saturation; coronal T1 spin echo and PD fast spin echo with fat saturation, and axial PD fast spin echo with fat saturation through the knee. COMPARISON: [facility], MR, KNEE WITHOUT CONTRAST, 05/18/2013, 9:08. FINDINGS: Image quality: Examination is limited by metallic and motion artifact and technical factors. Menisci: The medial meniscus is grossly intact, but is poorly visualized. There is detachment of the posterior horn lateral meniscus. Amorphous high signal intensity within the posterior horn lateral meniscus is present, demonstrating superior and inferior to the service extension, indicating degenerative tearing. Cruciate ligaments: Posterior cruciate ligament is intact. Full-thickness tearing of the anterior cruciate ligament is present. Medial structures: The medial collateral ligament appears intact. Visualized portions of the pes anserinus tendons appear normal. No abnormal bursal fluid. Lateral structures: The lateral collateral ligament is not well-seen, but is grossly intact as visualized. The long and short heads of the biceps femoris tendon appear intact. The popliteus tendon appears normal. Iliotibial band appears normal. Anterior structures: The quadriceps and patellar tendons appear intact. Patellar alignment is normal. No femoral trochlear dysplasia or ventral trochlear prominence. No edema in the infrapatellar fat pad. Bones and cartilage: No bone marrow contusions or fractures. Moderate tricompartmental periarticular osteophyte formation. Severe articular cartilage loss overlying the weightbearing aspects of the medial and lateral compartments is present. Joint space: There is a moderate knee joint effusion and a small Dyer's cyst. Small ganglion cyst along the popliteus. Normal appearing synovial plicae are incidentally noted. IMPRESSION: 1. Limited examination as described above. 2. No definite medial meniscal tear. Posterior horn lateral meniscal tear. 3. Anterior cruciate ligament tear. 4. Osteoarthritis with associated articular cartilage loss. 5. Knee joint effusion and Dyer's cyst. Dictated by: Keke Steiner M.D. on 04/04/2020 at 16:13 Approved by: Keke Steiner M.D. on 04/04/2020 at 16:18
== END ==
PROVIDERS: Family Provider Specialist; PCP Specialist; Referring Provider Orthopaedic Surgery; Visit Provider Orthopaedic Surgery
DX: M17.12 Unilateral primary osteoarthritis, left knee (principal); S83.282A Other tear of lateral meniscus, current injury, left knee, initial encounter; S83.512A Sprain of anterior cruciate ligament of left knee, initial encounter; M25.462 Effusion, left knee; M71.22 Synovial cyst of popliteal space [Baker], left knee
CPT/HCPCS: 73721

== ENCOUNTER → 2020-05-15 10:51 | Outpatient (CLI) | payer OTHER, MEDICAID, SELFPAY ==
[2020-02-21 09:26] VITALS: BMI 51.9
[2020-05-15 11:49] LABS: Bacteria Urine None Seen; WBC Urine None Seen (0-5/HPF)
[2020-05-15 12:12] LABS: Appearance Urine UA CLEAR; Bilirubin Urine UA NEGATIVE (NEGATIVE); Color Urine UA YELLOW; Glucose Urine UA NEGATIVE (Negative); Ketones Urine UA TRACE (NEGATIVE); Leukocyte Esterase Urine UA NEGATIVE (NEGATIVE); Nitrite Urine UA NEGATIVE (Negative); Occult Blood Urine UA TRACE-INTACT (Negative); Protein Urine UA TRACE (Negative); Urobilinogen Urine UA 0.2 E.U./dL (0.2); pH Urine UA 6.5 (4.5-8.0)
[2020-05-15 12:15] LABS: Add Manual Diff / Slide Review NO; Basophils Absolute Auto 100 /uL (0-100); Eosinophils Absolute Auto 100 /uL (0-450); Eosinophils Percent Auto 0.7 % (2-4); Hematocrit 37.3 % (36-46); Hemoglobin 12.4 g/dL (12.0-16.0); Lymphocytes Absolute Auto 2900 /uL (1100-4500); Lymphocytes Percent Auto 28.8 % (25-40); Mean Corpuscular HGB Conc 33.3 % (30-36); Mean Corpuscular Hemoglobin 31.1 PG (26-34); Mean Corpuscular Volume 93.3 fL (80-100); Monocytes Absolute Auto 600 /uL (0-900); Monocytes Percent Auto 6.2 % (3-14); Neutrophils Absolute Auto 6300 /uL (1500-7000); Neutrophils Percent Auto 63.3 % (50-75); Platelet Count 451 X10^3/uL (150-400); Red Cell Distribution Width 15.7 % (11.6-14.8); White Blood Cell Count 9.9 X10^3/uL (4.5-11.0)
[2020-05-15 12:23] LABS: Amorphous Sediment Urine 2+; Culture Indicated Urine Cult Not Indicated; RBC Urine 0-1/HPF (0-5/HPF)
[2020-05-15 12:35] LABS: Hemoglobin A1C% w Est Avg Glu 5.6 % (4.0-6.0)
[2020-05-15 12:42] LABS: BUN Creatinine Ratio 28.6 (6-22); Blood Urea Nitrogen 14 mg/dL (7-17); Calcium 9.1 mg/dL (8.4-10.2); Carbon Dioxide 25 mmol/L (22-32); Chloride 107 mmol/L (98-107); Estimated Glomerular Filt Rate > 60.0 mL/min (>60); Glucose 101 mg/dL (70-100); HEMOLYSIS < 15 (0-50); Potassium 4.2 mmol/L (3.4-5.1); Sodium 140 mmol/L (137-145)
== END ==
PROVIDERS: Family Provider Specialist; PCP Specialist; Referring Provider Orthopaedic Surgery; Visit Provider Orthopaedic Surgery
DX: Z01.818 Encounter for other preprocedural examination (principal); Z01.812 Encounter for preprocedural laboratory examination; R73.9 Hyperglycemia, unspecified; N39.0 Urinary tract infection, site not specified
CPT/HCPCS: 36415; 80048; 81001; 83036; 85025; 93005

== ENCOUNTER 2020-06-11 06:10 | Day surgery (SDC) | payer OTHER, MEDICAID, SELFPAY ==
[2020-02-21 09:26] VITALS: BMI 51.9
[2020-06-04 13:01] VITALS: BMI 54.8
[2020-06-11] VITALS (16 sets, daily range): BP systolic 102–158; BP diastolic 59–98; PULSE 65–93; RESP 12–20; TEMP 36.1–37.3; O2SAT 95–100; BMI 56.2
[2020-06-11] MEDS: LACTATED RINGERS 1,000 ML 42 ML IV ×2 (07:05→09:13)
[2020-06-11] MEDS: VANCOMYCIN 1,000 MG/200 ML PIGGYBACK 200 MG IV (07:32)
--- NOTE | 2020-06-11 07:35 | SUR.OPER ---
Supine on padded OR bed. Pillow under head, arms secured on padded armboards <90 degree abduction. Safety belt across torso. Non-operative leg secured with tape over blanket over lower leg. Operative leg secured in DeMayo/Jac positioner. Foam padded brace at thigh of operative leg.
--- NOTE | 2020-06-11 07:37 | PM.PREOP ---
Pre-operative Note COVID-19 COVID-19 status: Negative Interval Note History & Physical reviewed/Exam performed by Physician: Yes Changes to H&P: No
--- NOTE | 2020-06-11 07:39 | P.OP_ITS ---
Operative Date/Time/Diagnoses Date of procedure: 06/11/20 Time of procedure: 07:57 Pre-op diagnosis: Left knee severe osteoarthritis with valgus deformity, prior femur fracture Post-op diagnosis: same Procedure & Clinicians Procedure: Left total knee arthroplasty Same procedure as scheduled: Yes Indications: The patient has had progressively worsening left knee pain with radiographic changes consistent with arthritis. Non-operative management has failed and the patient has requested total knee replacement. The risks, benefits and alternatives to surgery were discussed with the patient prior to proceeding. Risks discussed included, but were not limited to, failure to relieve pain, stiffness, infection, nerve damage, deep venous thrombosis, pulmonary embolism, stroke, coma, heart attack, permanent paralysis and , as well as the potential need for eventual revision of the prosthetic. Surgeon: Mehnaz Zamudio Kiss Setter Hand: Ranulfo Wheat Anesthesia Type: Spinal Operative Notes Findings: Severe left knee arthritis, adequate stability, adequate bone quality Closure Type: primary Specimen(s): none sent Prosthetic devices, grafts, tissues, transplants, or devices: Zamudio and Nephew Journey BCS 2 size 3 femur, size 2 tibia, +12 poly, 35 x 9 patella Applied: drain(s) Estimated Blood Loss (mL): 250 Blood products transfused: none Tourniquet time (min): 64 Procedure in detail: The patient was seen in the pre-operative area, where the patient identified the left knee as the operative site and this was marked with my initials. The patient received pre-operative antibiotics, and was taken to the operating room and placed on the operative table in the supine position. After satisfactory anesthesia, a full time paramedic out was performed. The left leg was encircled with a tourniquet about the proximal thigh, and the leg was prepared from the toes to the tourniquet with ChloroPrep in the usual fashion and draped through sterile drapes. The leg was elevated and exsanguinated with Eschmark bandage and the tourniquet inflated to [250] mmHg pressure. The knee was approached through an approximately 18 cm incision centered over the patella and carried into the knee through a medial parapatellar arthrotomy. A portion of the medial and lateral meniscus was resected. Soft tissue was carefully mobilized around the patella the patella was measured with a caliper. Bone was resected from the patella and the patellar height was reconstituted with up an appropriate sized patellar component. A cover was then placed on the patella. A small amount of additional medial and lateral meniscus was resected. The visionare guide fit well to the distal femur. It looked like an appropriate distal femoral cut and the cut was made without difficulty. The rotation was assessed and the appropriate size femoral guide was placed on the distal femur and finishing cuts were made. There was no evidence of notching. The anterior, posterior and chamfer cuts were then made. The posterior osteophytes and soft tissues were then removed. The posterior capsule was injected with part of a mixture of 60 ml 0.25% Marcaine mixed with 20 ml Exparel for post operative pain control. The remainder of this mixture was injected into the capsule and subcutaneous tissues during cement curing. The tibia was prepared and the visionaire guide fit well to the distal tibia. The rotation was assessed. The patient was placed in extension residual medial and lateral meniscus as well as any residual bone was carefully resected. [No] additional tibia was resected. Hemostasis was achieved especially posteriorly. Additional local was injected into the posterior capsule. The extension gap was assessed and additional releases for gap balancing were performed as necessary. It was checked with the gap store loss prevention manager. The femoral component was trial was placed and the notch was finished. Trial tibial and femoral components were then placed and the knee placed through a range of motion. Range of motion was [0-130], with good stability throughout the range. The trials were then removed, and the tibia was finished. The bone was prepared with pulsatile lavage, and dried with a sponge. Cement was applied and the final prosthetics placed. Excess cement was removed during and after cement curing. A brief Betadine soak was performed. After confirming there was no extruded bello ent posteriorly, the final tibial insert was placed. The knee was copiously irrigated and the tourniquet deflated. Hemostasis was obtained with the Bovie. A drain was placed and brought out superolaterally. The capsule was closed with interrupted # 1 Vicryl suture. The subcutaneous layer was closed with barbed sutures, and the skin with a running 3-0 V-Lock suture and Surgical glue. An Aquacel Ag dressing was applied and the patient was taken to recovery having tolerated the procedure well. Complications: none Post-operative Condition: stable Disposition: Acute Care Plan for aftercare: The patient will be maintained on a standard total knee replacement protocol with weight bearing as tolerated. The patient will receive aspirin and sequential compression devices for DVT prophylaxis. The patient will be discharged home when safe for the home environment.
[2020-06-11] MEDS: CEFAZOLIN 2 GM/100 ML FROZ.PIGGY IV ×3 (08:08→23:43)
[2020-06-11] MEDS: BUPIVACAINE 0.25% W/ EPI 30 ML VIAL 60 ML INJ (08:17)
[2020-06-11] MEDS: BUPIVACAINE LIPOSOME 266 MG/20 ML VIAL INJ (08:17)
[2020-06-11] MEDS: TRANEXAMIC ACID 1,000 MG VIAL 1000 MG INJ ×2 (08:18→09:10)
--- NOTE | 2020-06-11 10:07 | SUR.PHASEI ---
Patient A\O x 4. GARCIA's x 4. Tolerating po. Drsg CDI.
--- NOTE | 2020-06-11 10:12 | DI.RAD.S_ITS ---
PROCEDURE: XR KNEE LT 1TO2V INDICATIONS: POST OPERATIVE TOTAL LEFT KNEE TECHNIQUE: 2 view(s) of the knee acquired. COMPARISON: None. FINDINGS: Bones: Patient is status post knee joint arthroplasty. Hardware components are in expected positions. Visualized bony structures are intact. Soft tissues: Overlying postoperative changes are noted. IMPRESSION: Expected postoperative alignment. Dictated by: Juarez Barcenas M.D. on 06/11/2020 at 11:38 Approved by: Juarez Barcenas M.D. on 06/11/2020 at 11:39
[2020-06-11] MEDS: OXYCODONE IR 5 MG TABLET PO (10:38)
[2020-06-11] MEDS: OXYCODONE IR 5 MG TABLET 10 MG PO ×4 (11:48→22:19)
[2020-06-11] MEDS: LACTATED RINGERS 1,000 ML 100 ML IV ×2 (11:50→22:20)
[2020-06-11] MEDS: ALBUTEROL 2.5 MG/3 ML NEB (ADULT) INH ×2 (13:38→20:34)
--- NOTE | 2020-06-11 13:45 | PT.IIE ---
Current Diagnoses Unilateral primary osteoarthritis, left knee (06/11/20) Surgery Performed Operation Date: 06/11/20 07:45 Actual Procedures p Total Knee Arthroplasty(Left) - Mehnaz Zamudio MD Surgical History (Last Updated 06/04/20 @ 13:02 by Grace Medrano RN) History of (Acute) History of surgery (Acute ~1990) History of surgery (Acute) History of total right hip arthroplasty (Acute 10/10/19) Hx of sinus surgery (Acute ~1979) Medical History (Last Reviewed 02/22/20 @ 09:54 by Frank Alcantara MD) Asthma (Chronic) Chronic pain (Acute) Chronic pain due to injury (Chronic) Chronic seasonal allergic rhinitis (Chronic) Collapsed arches (Acute) Easy bruisability (Acute) Eczema (Acute) Fatigue (Chronic) Fatty liver (Acute) Fibromyalgia (Chronic) GERD (gastroesophageal reflux disease) (Chronic) Left ACL tear (Acute) senior care current use of opiate analgesic (Chronic) senior care current use of systemic steroids (Chronic) Morbid obesity with BMI of 50.0-59.9, adult (Chronic) Obstructive sleep apnea of adult (Chronic) Osteoarthritis involving multiple joints on both sides of body (Chronic) Physical Therapy Inpatient Evaluation/Re-Eval M1 PT/OT-IP Prior Functional Status Start: 06/11/20 16:12 Freq: NEEDED Status: Active Protocol: Document 06/11/20 13:45 AB (Rec: 06/11/20 16:36 AB [id number]) Medical Review Prior Functional Status Medical History Reviewed Yes Communication able to make needs known Mobility and Gait pt stated that she is modified independent with all mobilities and ambulation using either a FWW or SPC depending on her pain level Social History Household Members none Living Arrangements House Number of Floors (Floors) One Floor Number of Stairs To Enter/Railing? has a ramp + 5 steps with R rail to enter the house but uses the stairs when she has to go out of the house and has 20 steps with L rail descending Home Environment High Toilet,Walk in Shower Home Equipment Front Wheel Walker,Straight Cane,Shower Seat with Backrest ,Hand Held Shower,Grab Bars Near Toilet,Grab Bars In Shower Additional Social History Comment pt stated that her mom and dad are going to be home with her to assist her and after her f /u appointment with her ortho doctor, she will be moving to [place] with her parents. M2 PT-IP Current Condition Start: 06/11/20 16:12 Freq: NEEDED Status: Active Protocol: Document 06/11/20 13:45 AB (Rec: 06/11/20 16:36 AB [id number]) Physical Therapy Current Condition Current Condition Evaluation Date 06/11/20 Treatment Diagnosis s/p L TKA; difficulty in walking Onset Date 06/11/20 Weight Bearing Status Weight Bearing Status Weight Bear as Tolerated Allowed Weight Bearing Amount (enter % WBAT LLE or #) (%) M3 PT-IP Subjective Start: 06/11/20 16:12 Freq: NEEDED Status: Active Protocol: Document 06/11/20 13:45 AB (Rec: 06/11/20 16:36 AB [id number]) Subjective Physical Therapy Visit Type Type Initial Evaluation Visit Start Time 13:45 Visit Stop Time 15:37 Total Visit Minutes 65 Notes pt seen for split visits: 1345 to 1430 and 1517 to 1537 Number of SEWING MACHINE TESTER Visits 0 Physical Therapy Visit Comments Patient Comments pt is agreeable to do PT Therapy Pain Assessment Pain When Pain Assessed At Rest Pain Present Pain Present Pain Reported Location Left Knee Intensity 8 Scale Used Numeric (0 - 10) Pain Management Techniques Apply Cold,Modification of Treatment,Timing of Activity with Medications M4 PT-IP Mobility and Gait Start: 06/11/20 16:12 Freq: NEEDED Status: Active Protocol: Document 06/11/20 13:45 AB (Rec: 06/11/20 16:36 AB [id number]) PT-Bed Mobility Assessment Supine to Sit Supine to Sit Standby Assistance,1 Person Assistance Sit to Supine Sit to Supine Standby Assistance,1 Person Assistance PT-Transfer Assessment Sit to and From Stand Sit to and from Stand Minimal Assistance,1 Person Assistance,Use of Upper Extremities Equipment Transfer Assistive Device Gait Belt,Front Wheeled Walker Orthotic/Prosthetic Devices or Brace: Yes Transfers Transfer Destination Toilet Transfer Technique ambulated using FWW Transfer Ability Level of Assist Minimal Assistance,1 Person Assistance,Use of Upper Extremities Comments Mobility Comments BP supine: 133/72. completed supine to sit SBA. pt was able to sit on EOB SBA. pt uses bilateral AFO's and assisted with donning. c/o dizziness and nausea sitting on EOB. BP: 115/55. pt sat of a few minutes but stated that she has to lay back down. completed sit to supine SBA. positioned in bed. informed nurse regarding c/o dizziness and decrease BP. checked back on pt after ~ 45 min. pt completed supine to sit SBA. requested to use the toilet and completed sit to stand min A, ambulated to the toilet using FWW min A and cues. c/o dizziness. moved chair closer to pt. pt completed sit to stand using grab bar CGA. ambulated to the chair using fWW min A. pt agreed to stay up on chair. BP: 107/51. nurse aware of pt 's dizziness and BP. positioned pt on chair. call light and table within reach. Left pt with nurse in room. Gait Assessment Gait Gait Assistance Required: Minimum Assistance Distance (Feet) 15 Able to Maintain Weight Bearing Status Yes During Gait Assistive Devices Assistive Device Gait Belt,Front Wheeled Walker Orthotic/Prosthetic Devices or Brace: No Gait Deviations General Gait Pattern Antalgic,Decreased Stride Length,Decreased Feet Clearance Factors Limiting Gait Function Factors Limiting Gait Function Decreased Activity Tolerance, Decreased Strength,Limited Range of Motion,Pain,Poor Balance,Poor Safety Awareness Comments Gait Comments pls refer to mobility section for details PT-Balance Assessment Sitting Balance and Reactions Static Sitting Balance Ability Good Dynamic Sitting Balance Ability Good Standing Balance and Reactions Static Standing Balance Ability Fair Dynamic Standing Balance Ability Fair Device Used FWW M5 PT-IP Objective Assessments Start: 06/11/20 16:12 Freq: NEEDED Status: Active Protocol: Document 06/11/20 13:45 AB (Rec: 06/11/20 16:36 AB [id number]) Orientation Orientation/Cognition Level of Alertness Alert Orientation Name,Place,Situation Language Function Ability No Deficits Noted Safety Awareness Understands Safety Issues Memory Description No Deficits Noted Gross Range of Motion Lower Extremity ROM Assessment Left Impaired Impairments L knee flexion: 70 deg Strength Lower Extremity Strength Assessment Left Impaired Hip 4-/5 Knee 3+/5 Ankle 3+/5 Muscle Tone Muscle Tone WNL Yes M6 PT-IP Treatment Start: 06/11/20 16:12 Freq: NEEDED Status: Active Protocol: Document 06/11/20 13:45 AB (Rec: 06/11/20 16:36 AB [id number]) Physical Therapy Treatment Exercises Exercises Heel Slides Education Education Provided Precautions,Weight Bearing Status,Post-Op Packet,Safety M7 PT-IP Assessment and Plan Start: 06/11/20 16:12 Freq: NEEDED Status: Active Protocol: Document 06/11/20 13:45 AB (Rec: 06/11/20 16:36 AB [id number]) PT Summary Assessment and Plan Potential Rehabilitation Potential Good Status of Condition at Evaluation Evolving Summary Impairments Pain,ROM,Strength,Balance,Bed Mobility,Transfers,Gait, Activity Tolerance Assessment Summary pt s/p L TKA and just had surgery this morning. pt required min A with mobility and unable to tolerate much due to c/o dizziness and nausea with decrease in BP during mobility. pt will likely progress during hospital stay. pt stated that [place] . pt's parents with assist pt at home. will assess progress. Goals Bed Mobility Goal Independent Transfer Goal Standby Assistance,Front Wheeled Walker Gait Goal Standby Assistance,Front Wheel Walker Gait Distance 100 Other Goals up 5 steps using R rail ascending SBA down 20 steps with L rail descending SBA Days to Meet Goals 5 Frequency of Treatment Frequency Of Treatment Twice a Day Treatment Plan Physical Therapy Treatment Plan Bed Mobility Training,Transfer Training,Gait Training, Therapeutic Exercise,Balance Retraining,Post Op Education, Discharge Planning,Hot or Cold Pack,Neuromuscular Re-ed, Coordination Retraining,Manual Therapy Other Recommendations and Next Treatment ambulation, stair climbing. Focus caregiver training Recommendations To Nursing Amount of Assist Needed 1 Person Assist Discharge Recommendations PT Discharge Recommendations Home with Assistance, Outpatient PT Transportation Needs at Discharge Private Vehicle
[2020-06-11] MEDS: ACETAMINOPHEN 325 MG TABLET 650 MG PO ×2 (15:15→20:13)
--- NOTE | 2020-06-11 15:27 | PC.NURSE ---
Low blood pressure sitting per PT 115/52; this RN encouraged pt to hydrate, IV fluids infusing; Oxycodone 10 mg for severe pain; RA 100% continuous pulse ox, LS diminished to bl bases; c/m/s to LLE present PPP; hemovac unclamped @ 1200
[2020-06-11] MEDS: DOCUSATE 100 MG CAPSULE PO (20:13)
[2020-06-11] MEDS: CYCLOBENZAPRINE 10 MG TABLET PO (20:14)
[2020-06-11] MEDS: MONTELUKAST 10 MG TABLET PO (20:14)
[2020-06-11] MEDS: ASPIRIN EC 81 MG TABLET PO (20:14)
[2020-06-11] MEDS: PANTOPRAZOLE 20 MG TABLET PO (20:14)
[2020-06-11] MEDS: FLUTICASONE 220MCG HFA 120 PUFF INH (20:25)
--- NOTE | 2020-06-12 01:48 | PC.NURSE ---
no output in hemovac, compressed. 1pa to the BR-fww. pain controlled with oxycodone 10mg q3hr.
[2020-06-12] MEDS: OXYCODONE IR 5 MG TABLET 10 MG PO ×2 (02:36→06:06)
[2020-06-12 04:00] VITALS: BP 146/78; PULSE 96; RESP 16; TEMP 36.6; O2SAT 96
[2020-06-12 06:26] VITALS: PULSE 80; RESP 18; O2SAT 96
[2020-06-12] MEDS: ALBUTEROL 2.5 MG/3 ML NEB (ADULT) INH (06:26)
[2020-06-12 06:37] LABS: Hematocrit 34.1 % (36-46); Hemoglobin 11.1 g/dL (12.0-16.0)
--- NOTE | 2020-06-12 07:39 | PM.PN.1 ---
Subjective Subjective Date Patient Seen: 06/12/20 Time Patient Seen: 07:39 Interval history: She notes that she had significant problems with pain control overnight. She is feeling a little better this morning which she does have ongoing significant pain in her left knee. She has been able to get out of bed with physical therapy she does have some difficulties with access to her house. Exam Vital Signs (past 8 hours): - 06/12/20 04:00 06/12/20 06:26 Temperature 97.8 F Pulse Rate 96 H 80 Respiratory Rate 16 18 Blood Pressure 146/78 H Pulse Oximetry 96 96 Oxygen Delivery Method Room Air Oxygen Flow Rate 0 Narrative Exam Narrative: She is resting comfortably in bed she can do an active straight leg raise, her dressings intact, calfs are soft bilaterally she is able to fire toe flexors and extensors without difficulty. Dressings intact and dry. Objective Labs Result Diagrams: 06/12/20 06:11 Labs: Laboratory Results - last 24 hr 06/12/20 06:11 Hgb 11.1 L Hct 34.1 L Assessment & Plan Assessment & Plan narrative: Improving status post left total knee arthroplasty. The plan is to mobilize with physical therapy today. She can be discharged home as long as she has adequate control with oral pain medicines and is able to ambulate and is cleared by physical therapy. She is going to follow up as an outpatient and is going to keep begin outpatient physical therapy. Quality VTE Deep Vein Thrombosis/Pulmonary Embolism Present on Admission: No
[2020-06-12] MEDS: FLUTICASONE 220MCG HFA 120 PUFF INH (07:45)
[2020-06-12 07:52] VITALS: PULSE 78; RESP 20; O2SAT 97
[2020-06-12 08:00] VITALS: BP 156/69; PULSE 95; RESP 18; TEMP 36.7; O2SAT 100
[2020-06-12] MEDS: PANTOPRAZOLE 20 MG TABLET PO (08:22)
[2020-06-12] MEDS: DOCUSATE 100 MG CAPSULE PO (08:22)
[2020-06-12] MEDS: ASPIRIN EC 81 MG TABLET PO (08:23)
[2020-06-12] MEDS: ACETAMINOPHEN 325 MG TABLET 650 MG PO (08:23)
[2020-06-12] MEDS: DULOXETINE 30 MG CAPSULE PO (08:24)
[2020-06-12] MEDS: predniSONE 20 MG TABLET 30 MG PO (08:25)
[2020-06-12] MEDS: HYDROMORPHONE 2 MG TABLET 4 MG PO ×2 (08:59→12:09)
--- NOTE | 2020-06-12 09:35 | PT.IPTN ---
Current Diagnoses Unilateral primary osteoarthritis, left knee (06/11/20) Surgery Performed Operation Date: 06/11/20 07:45 Actual Procedures p Total Knee Arthroplasty(Left) - Mehnaz Zamudio MD Physical Therapy Treatment Note M2 PT-IP Current Condition Start: 06/11/20 16:12 Freq: NEEDED Status: Discharge Protocol: Document 06/11/20 13:45 AB (Rec: 06/11/20 16:36 AB [id number]) Physical Therapy Current Condition Current Condition Evaluation Date 06/11/20 Treatment Diagnosis s/p L TKA; difficulty in walking Onset Date 06/11/20 Weight Bearing Status Weight Bearing Status Weight Bear as Tolerated Allowed Weight Bearing Amount (enter % WBAT LLE or #) (%) M3 PT-IP Subjective Start: 06/11/20 16:12 Freq: NEEDED Status: Discharge Protocol: Document 06/12/20 08:53 SP (Rec: 06/12/20 14:29 SP [email or web address]) Subjective Physical Therapy Visit Type Type Treatment Note Visit Start Time 08:53 Visit Stop Time 09:35 Total Visit Minutes 42 Notes Mother present during tx, complete caregiver training. Nurse in room assisting pt with bed mobilty when arrived. Number of WEBMASTER Visits 1 Physical Therapy Visit Comments Patient Comments Pt agreeable to working with PT. Therapy Pain Assessment Pain When Pain Assessed At Rest Pain Present Pain Present Pain Reported Location Left Knee Intensity 8 Scale Used 8/10 at rest, decreaed 7/10 during mobility and pain meds given during tx. Pain Management Techniques Apply Cold,Re-positioning, Timing of Activity with Medications M4 PT-IP Mobility and Gait Start: 06/11/20 16:12 Freq: NEEDED Status: Discharge Protocol: Document 06/12/20 08:53 SP (Rec: 06/12/20 14:29 SP [email or web address]) PT-Bed Mobility Assessment Sit to Supine Sit to Supine Moderate Assistance,1 Person Assistance,Head of Bed Elevated Scooting Scooting to Edge of Bed Moderate Assistance PT-Transfer Assessment Sit to and From Stand Sit to and from Stand Contact Guard Assistance,1 Person Assistance,Use of Upper Extremities Equipment Transfer Assistive Device Gait Belt,Front Wheeled Walker Orthotic/Prosthetic Devices or Brace: No Transfers Transfer Destination Chair,Toilet,Wheelchair Transfer Technique ambulated using FWW Transfer Ability Level of Assist Standby Assistance,Contact Guard Assistance,1 Person Assistance,Use of Upper Extremities Comments Mobility Comments Nursing assisting patient elevated supine>sitting with Min A of 1 for LLE support and Mod A using transfer pad to scoot to EOB. Sit to stand CGA by WEBMASTER while using FWW and cuing for BUE push from bed to stand. Pt's mother was in room present during transfer, educated importance of use of gait belt that WEBMASTER donned before patient standing. Mother assisted patient during gait with cuing for supinated hand placement, pt walked fromL side of bed to bathroom approx 15 ft using FWW CGA step to gait patterning with cuing for knee flexion and heel toe gait. Pt step pivoting FWW 180 deg and backing up to toilet in bathroom then use of grab bar and FWW, CGA by mother to slow descend. Pt able to void urine and Moderate BM and complete self hygiene and hand hygiene while seated on toilet. Pt requested meds for assistance with pain which nursing provided. Sit>stand by mother usign grab bar and FWW CGA then ambulated to chair, good slow descent using BUE and CGA. Mother assisted patient with donning B AFOs for increased balance durign gait while WEBMASTER acquired w/c for sitting support incase decreased activity tolerance durign gait to stairs. Sit > stand from chair using FWW with CGA by mother, pt ambulated further distance into hallway approx 50 ft with w/c follow, with cuing for knee flexion, heel toe gait with improved step over step then required seated rest in w /c end of distance due to decreased activity tolerance, good slow controlled descent rest into locked w/c CGA by mother. Pt was able to hold LLE supported by RLE while being pushed to stairs. Pt was able to ascend/descend 6 stairs to assimulate 5 stairs has outside to enter home with R HR and SPC in LUE, CGA provided by mother, 1 stop stand rest between 3 x2 sets of stairs for tiring recovery. Pt requested to sit after stair mgt due to decreased activity tolerance and pain L knee 04/26. WEBMASTER wheeled patient back to room. Pt sit to stand and ambulated approx 5 ft CGA using FWW w/c in room to chair by mother. Good controlled sitting in chair and reclined with call light and all needs in reach before left. MOther was in room when left. WEBMASTER discussed with nursing progress made today and patient is able to go home with parents to assist her, recommending outpt PT to progress in ROM, strengthen to improve functional mobility. Gait Assessment Gait Gait Assistance Required: Contact Guard Assist,1 Person Assist Distance (Feet) 50 Able to Maintain Weight Bearing Status Yes During Gait Assistive Devices Assistive Device Gait Belt,Front Wheeled Walker Orthotic/Prosthetic Devices or Brace: No Gait Deviations General Gait Pattern Antalgic,Decreased Stride Length,Decreased Feet Clearance,Flexed Trunk,Step-to Gait Factors Limiting Gait Function Factors Limiting Gait Function Decreased Activity Tolerance, Decreased Strength,Limited Range of Motion,Pain,Poor Balance,Poor Safety Awareness Comments Gait Comments See mobility comment details. Stair Climbing Assessment Evaluation Level of Assist On Stairs Contact Guard Assistance,1 Person Assistance Devices Stair Climbing Assistive Devices Straight Cane,Right Railing Technique/Endurance Stair Climbing Direction Ascend and Descend Stair Climbing Technique Step to Step Number of Steps Climbed 3 Stair Climbing Set # Repetitions (reps) 2 Comments Stair Climbing Comments See mobility comment details. PT-Balance Assessment Sitting Balance and Reactions Static Sitting Balance Ability Good Dynamic Sitting Balance Ability Good Standing Balance and Reactions Static Standing Balance Ability Fair Dynamic Standing Balance Ability Fair Device Used FWW M5 PT-IP Objective Assessments Start: 06/11/20 16:12 Freq: NEEDED Status: Discharge Protocol: Document 06/11/20 13:45 AB (Rec: 06/11/20 16:36 AB [id number]) Orientation Orientation/Cognition Level of Alertness Alert Orientation Name,Place,Situation Language Function Ability No Deficits Noted Safety Awareness Understands Safety Issues Memory Description No Deficits Noted Gross Range of Motion Lower Extremity ROM Assessment Left Impaired Impairments L knee flexion: 70 deg Strength Lower Extremity Strength Assessment Left Impaired Hip 4-/5 Knee 3+/5 Ankle 3+/5 Muscle Tone Muscle Tone WNL Yes M6 PT-IP Treatment Start: 06/11/20 16:12 Freq: NEEDED Status: Discharge Protocol: Document 06/12/20 08:53 SP (Rec: 06/12/20 14:29 SP [email or web address]) Physical Therapy Treatment Exercises Exercises Heel Slides,Seated Knee Flexion/Extension Education Education Provided Precautions,Weight Bearing Status,Post-Op Packet,Safety M7 PT-IP Assessment and Plan Start: 06/11/20 16:12 Freq: NEEDED Status: Discharge Protocol: Document 06/12/20 08:53 SP (Rec: 06/12/20 14:29 SP [email or web address]) PT Summary Assessment and Plan Potential Rehabilitation Potential Good Status of Condition at Evaluation Evolving Summary Impairments Pain,ROM,Strength,Balance,Bed Mobility,Transfers,Gait, Activity Tolerance Assessment Summary Pt required Min-Mod A with bed mobility from Nurse this am, CGA during all other mobility in WB using FWW assist provided by mother during caregiver training. Pt was able to increase distance gait approx 50 ft using FWW, CGA and 6 step stair mgt R HR and SPC on L as did at home. WEBMASTER recommended having a chair bottom of steps and along incline to stair for rest break if needed. Pt is ok to return home with her parents to assist her when medically cleared. Recommending outpt therapy to progress ROm and strengthening for increase independence in mobiltiy. Goals Bed Mobility Goal Independent Transfer Goal Standby Assistance,Front Wheeled Walker Gait Goal Standby Assistance,Front Wheel Walker Gait Distance 100 Other Goals up 5 steps using R rail ascending SBA down 20 steps with L rail descending SBA Days to Meet Goals 5 Frequency of Treatment Frequency Of Treatment Twice a Day Treatment Plan Physical Therapy Treatment Plan Bed Mobility Training,Transfer Training,Gait Training, Therapeutic Exercise,Balance Retraining,Post Op Education, Discharge Planning,Hot or Cold Pack,Neuromuscular Re-ed, Coordination Retraining,Manual Therapy Other Recommendations and Next Treatment ambulation, stair climbing. Focus caregiver training Recommendations To Nursing Amount of Assist Needed 1 Person Assist Discharge Recommendations PT Discharge Recommendations Home with Assistance, Outpatient PT Transportation Needs at Discharge Private Vehicle
--- NOTE | 2020-06-12 12:15 | PC.NURSE ---
Nurse gave reviewed discharge instructions with pt, reviewed stroke precautions, hard copies for meds given to pt and pt's mom was able to curing pickling packer meds for pt at pharmacy, pt notified to f/u with provider, pt advised to drink plenty of water and fluids to prevent constipation with pain meds, pt dressed, and has all belongings, and wheeled to entrance by nurse, pt going home with parents
--- NOTE | 2020-06-12 14:48 | CM.DANOTE ---
DCP Discharge Home Patient is a 50 year old female who was admitted on 06/11/20 for LTKA. Pt has [employer] and [facility] for insurance and her PCP is Dr. Afshan Mccullough. EMR was reviewed. Per Ortho MD, pt tolerated procedure well and can d/c home today pending pain control with oral meds and mobilize with PT. Per PT, pt is independent at baseline and lives on [place] and plan is for parents to provide transport home and will stay to assist at d/c and when follow up appointments complete plan is to move to [place] with parents. Recommending safe d/c home with family and outpt PT later today after stairs and CG training. Per RN, [id number] and no concerns at this time. Plan: Patient to d/c home via parent's POV and no SW needs at this time. RAJWINDER Laguerre
== END 2020-06-12 12:30 | disposition home or self-care (01) ==
LOC: OR 06:12 → AC 10:51
PROVIDERS: Family Provider Specialist; PCP Specialist; Referring Provider Specialist; Visit Provider Orthopaedic Surgery
PROC: 0SRD0JZ Replacement of Left Knee Joint with Synthetic Substitute, Open Approach (ICD-10-PCS; CPT 27447; principal; 2020-06-11 07:45)
DX: M17.12 Unilateral primary osteoarthritis, left knee (principal); E66.9 Obesity, unspecified; G47.33 Obstructive sleep apnea (adult) (pediatric); J45.909 Unspecified asthma, uncomplicated; K21.9 Gastro-esophageal reflux disease without esophagitis
CPT/HCPCS: 27447; 36415; 73560; 85014; 85018; 94640; 97116; 97162; 97530; C1776; A9270; C9290; J0690; J1200; J2250; J2704; J3010; J7613

== ENCOUNTER → 2021-12-04 07:49 | Outpatient (CLI) | payer OTHER, MEDICAID, SELFPAY ==
[2021-07-07 16:18] VITALS: BMI 56.2
--- NOTE | 2021-12-04 | DI.NM.S_ITS ---
PROCEDURE: NM PUL VENT AND PERFUSION RADIOPHARMACEUTICAL: 38.2 mCi Tc-99m DTPA aerosol by inhalation and 8.0 mCi Tc-99m MAA intravenously. INDICATIONS: shortness of breath TECHNIQUE: Ventilation images were obtained first with Tc-99m DTPA aerosol. Subsequently, perfusion images were acquired after intravenous injection of Tc-99m MAA. Anterior, posterior, DURAN, PATRICIA, RPO, LPO, left and right lateral views were obtained. COMPARISON: None. FINDINGS: Ventilation is diffusely heterogeneous. Perfusion is grossly unremarkable with no definite mismatches in ventilation and perfusion. IMPRESSION: Low probability for pulmonary embolus. Dictated by: Keke Steiner M.D. on 12/04/2021 at 9:37 Approved by: Keke Steiner M.D. on 12/04/2021 at 9:39
== END ==
PROVIDERS: Family Provider Specialist; PCP Specialist; Referring Provider Internal Medicine Cardiovascular Disease; Visit Provider Internal Medicine Cardiovascular Disease
DX: R06.02 Shortness of breath (principal)
CPT/HCPCS: 78582; A9539; A9540